=== PATIENT | male | born 1955 | race African-American/Black ===

== ENCOUNTER → 2021-07-29 | Outpatient (CLI) | payer MEDICARE, OTHER ==
[~2021-07-29] MED LIST: ASPIR-LOW81 MG PO; BENTYL10 MG PO; METAMUCIL PO; MIRALAX PO; PLAVIX75 MG PO; TRIAMTERENE-HC1 EACH PO
== END ==
LOC: NM 08:10
PROVIDERS: ATTEND Family Medicine
DX: E04.2 Nontoxic multinodular goiter (principal)
CPT/HCPCS: 78014; A9516